=== PATIENT | female | born 1985 | race American Indian/Alaskan Native ===

== ENCOUNTER 2021-06-04 00:32 | Outpatient (CLI) | payer MEDICAID ==
[2021-06-04 00:57] VITALS: BP 137/65
--- NOTE | 2021-06-04 03:15 | Ultrasound Report ---
ULTRASOUND OBSTETRIC LIMITED ULTRASOUND BIOPHYSICAL PROFILE INDICATION / CLINICAL INFORMATION: bpp. COMPARISON: None available. FINDINGS: BREATHING MOVEMENT = 2 GROSS BODY MOVEMENT = 2 TONE = 2 QUALITATIVE AMNIOTIC FLUID VOLUME = 2 TOTAL BIOPHYSICAL SCORE = 8/8 AMNIOTIC FLUID INDEX (cm) = 13.9 PRESENTATION: Cephalic. HEART RATE (beats per minute): 134 ADDITIONAL FINDINGS: None. IMPRESSION: 1. Biophysical Score = 8/8 Signer Name: Morgan Jin MD Signed: 06/04/2021 3:11 AM Workstation Name: [id number]
== END 2021-06-04 03:05 | disposition home or self-care (01) ==
LOC: TRG 00:32 → APU 00:34 → TRG 03:05
PROVIDERS: ATTEND Obstetrics & Gynecology
DX: O47.1 False labor at or after 37 completed weeks of gestation (principal); Z3A.37 37 weeks gestation of pregnancy
CPT/HCPCS: 59025; 76819